=== PATIENT | female | born 1955 | race Hispanic/Latino ===

== ENCOUNTER 2016-08-04 08:08 | Outpatient (CLI) | payer BC ==
--- NOTE | 2016-08-04 11:06 | Ultrasound Report ---
ULTRASOUND SOFT TISSUE NECK: 08/04/16 CLINICAL: Palpable lump at the midline supra-clavicular area for one month. FINDINGS: Ultrasound of the neck demonstrate no mass, cyst or lymphadenopathy to correlate with the described palpable lump. Normal fat. IMPRESSION: Negative ultrasound with no neck mass identified.
== END 2016-08-04 08:09 | disposition home or self-care (01) ==
LOC: SPVWC 08:08
PROVIDERS: ATTEND Internal Medicine
DX: R22.1 Localized swelling, mass and lump, neck (principal)
CPT/HCPCS: 76536